=== PATIENT | male | born 1975 | race Two or more races ===

== ENCOUNTER 2018-07-17 06:01 | Emergency (ER) | payer MEDICAID, OTHER ==
[~2018-07-17] VITALS: Ht 177.8 cm; Wt 59.0 kg
[2018-07-17] MEDS ORDERED: ALBUTEROL FS 2.5 MG/0.5 ML VIAL.NEB NEB STA (06:12)
[2018-07-17] MEDS ORDERED: IPRATROPIUM NEB FS 0.5 MG/2.5 ML AMPUL.NEB ONE (06:22)
[2018-07-17] MEDS ORDERED: ALBUTEROL FS 2.5 MG/3 ML VIAL.NEB ONE ×2 (06:22→07:01)
[2018-07-17] MEDS ORDERED: IPRATROPIUM NEB FS 0.5 MG/2.5 ML AMPUL.NEB NEB ONE ×2 (06:30)
[2018-07-17] MEDS ORDERED: ALBUTEROL FS 2.5 MG/0.5 ML VIAL.NEB NEB ONE ×2 (06:30→07:00)
--- NOTE | 2018-07-17 07:37 | NUR ---
PATIENT COMPLETED BREATHING TX. NO RESPIRATORY DISTRESS. Patient discharged to home in stable condition. Written and verbal after care instructions given. Patient verbalizes understanding of instruction.
[2018-07-17 07:38] VITALS: BP 123/83
== END 2018-07-17 07:39 | disposition home or self-care (01) ==
LOC: ER 06:03
DX: J45.909 Unspecified asthma, uncomplicated (principal); I10 Essential (primary) hypertension

== ENCOUNTER 2018-07-17 19:39 | Emergency (ER) | payer MEDICAID, OTHER ==
[~2018-07-17] VITALS: Ht 177.8 cm; Wt 86.2 kg
--- NOTE | 2018-07-17 20:01 | NUR ---
BIBSELF C/O SOB X 2 HRS. CAME IN EARLIER FOR SAME PROBLEM. AOX4, AMB, SLIGHTLY TACHYPNEIC AND TACHYCARDIC. NO ACUTE DISTRESS NOTED. READY FOR EVAL.
[2018-07-17] MEDS ORDERED: Magnesium 1GM/D5W 100ML PREMIX 200 ML IV ONE ×2 (20:03→20:39)
[2018-07-17] MEDS ORDERED: ALBUTEROL FS 2.5 MG/3 ML VIAL.NEB ONE (20:19)
[2018-07-17] MEDS ORDERED: IPRATROPIUM NEB FS 0.5 MG/2.5 ML AMPUL.NEB ONE (20:19)
[2018-07-17 20:22] LABS: BASOPHILS # (AUTO) 0.1 /CMM (0.0-0.2); EOSINOPHILS % (AUTO) 8.9 % (0.0-6.0); HEMATOCRIT 45 % (39-51); LYMPHOCYTES # (AUTO) 1.1 /CMM (0.8-4.8); LYMPHOCYTES % (AUTO) 15.4 % (20.0-44.0); MEAN CORPUSCULAR HGB CONC 33 g/dl (31.0-36.0); MEAN CORPUSCULAR VOLUME 91 fL (80-96); MONOCYTES # (AUTO) 0.7 /CMM (0.1-1.30); MONOCYTES % (AUTO) 9.9 % (2.0-12.0); NEUTROPHILS # (AUTO) 4.5 /CMM (1.8-8.9); NEUTROPHILS % (AUTO) 64.8 % (43.0-81.0); PLATELET COUNT (AUTO) 239 /CMM (150-450); RED BLOOD CELL COUNT(AUTO) 4.98 MIL/uL (4.5-6.0); WHITE BLOOD COUNT (AUTO) 6.9 K/uL (4.3-11.0)
[2018-07-17 20:29] LABS: CALCIUM, SERUM 8.2 mg/dL (8.5-10.1); POTASSIUM 4.2 mmol/L (3.5-5.1)
[2018-07-17] MEDS ORDERED: IPRATROPIUM NEB FS 0.5 MG/2.5 ML AMPUL.NEB NEB ONE (20:30)
[2018-07-17] MEDS ORDERED: ALBUTEROL FS 2.5 MG/3 ML VIAL.NEB CONTNEB ONE (20:30)
[2018-07-17] MEDS ORDERED: IV NS 0.9% 1,000 ML BAG IV ONE (20:30)
--- NOTE | 2018-07-17 21:22 | NUR ---
CALLED RAKEL RE: CXR.
[2018-07-17 21:52] VITALS: BP 135/85
--- NOTE | 2018-07-17 22:00 | NUR ---
IV removed. Catheter intact and site benign. Pressure and 4x4 applied to site. No bleeding noted. Patient discharged to home in stable condition. Written and verbal after care instructions given. Patient verbalizes understanding of instruction.
== END 2018-07-17 22:20 | disposition home or self-care (01) ==
LOC: ER 19:40
DX: J45.909 Unspecified asthma, uncomplicated (principal); I10 Essential (primary) hypertension; F17.200 Nicotine dependence, unspecified, uncomplicated
CPT/HCPCS: 36415; 71045; 80048; 85025; 93005; 94644; 96365; 99285; J3475; J7030

== ENCOUNTER 2019-07-09 09:51 | Emergency (ER) | payer MEDICAID, OTHER ==
[~2019-07-09] VITALS: Ht 167.6 cm; Wt 61.2 kg
--- NOTE | 2019-07-09 10:00 | NUR ---
patient bibra sob and wheezing needs inhaler refill. On rom air, sat @ 96%, verbally abusive refused to wear mask. connected to the monitor and pulse ox. kept comfortable, will continue to monitor accordingly.
[2019-07-09 10:11] VITALS: BP 129/76
--- NOTE | 2019-07-09 10:15 | NUR ---
Patient discharged to home in stable condition. Written and verbal after care instructions given. Patient verbalizes understanding of instruction.
== END 2019-07-09 10:15 | disposition home or self-care (01) ==
LOC: ER 09:53
DX: J45.909 Unspecified asthma, uncomplicated (principal); I10 Essential (primary) hypertension